=== PATIENT | male | born 1955 | race Two or more races ===

== ENCOUNTER 2021-07-19 12:19 | Inpatient (IN) | payer MEDICARE, OTHER ==
[~2021-07-19] VITALS: Ht 180.3 cm; Wt 109.4 kg
[2021-07-19 14:03] LABS: White Blood Cell 8.2 10^3/uL (4.4-10.8)
[2021-07-19 14:05] LABS: Basophils # (auto) 0 10 ^3/uL (0-0.2); Basophils % (auto) 0.2 % (0.0-2.0); Eosinophils # (auto) 0 10 ^3/uL (0-0.8); Eosinophils % (auto) 0.3 % (0.0-7.0); Hematocrit 29.2 % (41.0-53.0); Hemoglobin 10.6 g/dL (13.5-17.5); Lymphocytes % (auto) 12.8 % (10.0-50.0); Mean Corpuscular Hemoglobin 38.8 pg (28.0-32.0); Mean Corpuscular Hgb Conc. 36.1 g/dL (32.0-36.0); Mean Corpuscular Volume 107.3 fL (80.0-100.0); Monocytes # (auto) 0.8 10 ^3/uL (0-1.3); Monocytes % (auto) 9.7 % (0.0-12.0); Neutrophils # (auto) 6.3 10 ^3/uL (1.6-8.6); Nucleated Red Blood Cells % 0.2 %; Red Blood Cells 2.73 10^6/uL (4.5-5.90); Red Cell Distribution Width 12.9 % (11.8-14.3)
[2021-07-19 14:10] LABS: Albumin 1.8 g/dL (3.4-5.0); Calcium 7.7 mg/dL (8.5-10.1)
[2021-07-19 14:16] LABS: BUN/Creatinine Ratio 12.6; Bilirubin, Total 2.8 mg/dL (0.2-1.0); Total Protein 7.6 g/dL (6.4-8.2)
[2021-07-19 14:35] LABS: Potassium 2.8 mmol/L (3.5-5.1)
[2021-07-19 15:07] LABS: INR 1.46 (0.9-1.15); Partial Thromboplastin Time 33.9 sec (23.6-33.0)
[2021-07-19] MEDS ORDERED: POTASSIUM EFFERVESENT TAB 25 MEQ PO ONE (15:15)
[2021-07-19] MEDS ORDERED: HEPARIN SODIUM (PORCINE) 5000 UNITS/ML 1ML VIAL IV ONE (15:45)
[2021-07-19] MEDS ORDERED: NITROGLYCERIN 0.4 MG SL TAB SL PRN ×2 (19:00→19:15)
[2021-07-19] MEDS ORDERED: MORPHINE SULFATE INJECTION 2 MG/ML SYRG IV PRN ×3 (19:00→19:15)
[2021-07-19] MEDS ORDERED: HYDROcodone-ACET 5/325MG TAB PO PRN (19:15)
[2021-07-19] MEDS ORDERED: AZITHROMYCIN 500MG/ 250ML 250 ML IV ONE (19:15)
[2021-07-19] MEDS ORDERED: hydrALAZINE HCL 20 MG/ML VL IV PRN (19:15)
[2021-07-19] MEDS ORDERED: cefTRIAXone 1GM/50ML D5W 50 ML IV ONE (19:15)
[2021-07-19] MEDS ORDERED: ALUM & MAG HYDROX-SIMETH LIQ(MAALOX) 30 ML PO PRN (19:15)
[2021-07-19] MEDS ORDERED: PANTOPRAZOLE 40 MG/10 ML VIAL INJ IV ONE (19:15)
[2021-07-19] MEDS ORDERED: ONDANSETRON HCL 4 MG/2 ML VIAL IV PRN (19:15)
[2021-07-19] MEDS ORDERED: DOCUSATE SOD 100 MG CAP PO PRN (19:15)
[2021-07-19] MEDS ORDERED: ACETAMINOPHEN 500 MG TAB PO PRN (19:15)
[2021-07-19] MEDS: POTASSIUM CHL 10MEQ/50ML 50 ML IV SCH ×2 (19:43→20:43)
[2021-07-19] MEDS: ASCORBIC ACID 1,000 MG TAB PO SCH (19:51)
[2021-07-19] MEDS: ZINC SULFATE 220mg CAP or TAB PO SCH (20:21)
[2021-07-19] MEDS: CHOLECALCIFEROL (VITD3) 2,000 UNIT CAP/TAB PO SCH (20:21)
[2021-07-19] MEDS: APIXABAN 5 MG TAB PO SCH (20:23)
[2021-07-19] MEDS: DexAMETHasone SOD PHOS 10MG/1ML VIAL INJ IV SCH (20:52)
[2021-07-19 21:02] LABS: Albumin 1.6 g/dL (3.4-5.0); Calcium 7.5 mg/dL (8.5-10.1); Magnesium 2.5 mg/dL (1.6-2.6); Potassium 3.1 mmol/L (3.5-5.1); Uric Acid 9.9 mg/dL (3.5-7.2)
[2021-07-19 21:05] LABS: Lactic Acid w/Reflex 2.1 mmol/L (0.4-2.0)
[2021-07-19 21:11] LABS: Bilirubin, Total 2.6 mg/dL (0.2-1.0); CRP High Sensitivity 4.25 mg/dL (< 0.3); Total Protein 7.1 g/dL (6.4-8.2)
[2021-07-19 21:16] LABS: Thyroid Stimulating Hormone 3.3 uIU/mL (0.358-3.74)
[2021-07-19 21:20] LABS: % Iron Saturation 109.3 % (20-55); Iron 59 ug/dL (65-175); Total Iron Binding Capacity 54 ug/dL (250-450)
[2021-07-19 21:32] LABS: Basophils # (auto) 0 10 ^3/uL (0-0.2); Basophils % (auto) 0.4 % (0.0-2.0); Eosinophils # (auto) 0 10 ^3/uL (0-0.8); Eosinophils % (auto) 0.6 % (0.0-7.0); Hemoglobin 9.2 g/dL (13.5-17.5); Lymphocytes % (auto) 17.5 % (10.0-50.0); Mean Corpuscular Hgb Conc. 35.3 g/dL (32.0-36.0); Mean Corpuscular Volume 99.1 fL (80.0-100.0); Monocytes # (auto) 0.6 10 ^3/uL (0-1.3); Monocytes % (auto) 10.5 % (0.0-12.0); Neutrophils # (auto) 4.2 10 ^3/uL (1.6-8.6); Nucleated Red Blood Cells % 0.4 %; Red Blood Cells 2.62 10^6/uL (4.5-5.90); White Blood Cell 5.9 10^3/uL (4.4-10.8)
[2021-07-19 22:00] VITALS: BP 113/63
[2021-07-19] MEDS ORDERED: TEMAZEPAM 15 MG CAP PO PRN (22:00)
[2021-07-19 22:39] LABS: Cholesterol < 50 mg/dL (< 200); Triglycerides 69 mg/dL (< 150)
[2021-07-19 22:41] LABS: HDL Cholesterol 12 mg/dL (40-59); LDL Cholesterol 28 mg/dL (< 100)
[2021-07-20 05:00] VITALS: BP 102/48
[2021-07-20] MEDS: FUROSEMIDE 20 MG/2 ML VIAL IV SCH ×2 (07:14→18:44)
[2021-07-20 07:18] LABS: Basophils # (auto) 0 10 ^3/uL (0-0.2); Basophils % (auto) 0.2 % (0.0-2.0); Eosinophils # (auto) 0 10 ^3/uL (0-0.8); Hemoglobin 8.9 g/dL (13.5-17.5); Monocytes # (auto) 0.2 10 ^3/uL (0-1.3); White Blood Cell 4.5 10^3/uL (4.4-10.8)
[2021-07-20 07:22] LABS: Eosinophils % (auto) 0.1 % (0.0-7.0); Hematocrit 24.5 % (41.0-53.0); Lymphocytes # (auto) 0.5 10 ^3/uL (0.4-5.4); Lymphocytes % (auto) 11.8 % (10.0-50.0); Mean Corpuscular Hemoglobin 39.7 pg (28.0-32.0); Mean Corpuscular Hgb Conc. 36.4 g/dL (32.0-36.0); Monocytes % (auto) 4.2 % (0.0-12.0); Neutrophils # (auto) 3.8 10 ^3/uL (1.6-8.6); Neutrophils % (auto) 83.7 % (37.0-80.0); Nucleated Red Blood Cells % 0.1 %; Red Blood Cells 2.25 10^6/uL (4.5-5.90); Red Cell Distribution Width 12.8 % (11.8-14.3)
[2021-07-20 07:23] LABS: Potassium 3.2 mmol/L (3.5-5.1)
[2021-07-20 07:31] LABS: INR 1.56 (0.9-1.15); Partial Thromboplastin Time 38.4 sec (23.6-33.0)
[2021-07-20 07:37] LABS: Albumin 1.4 g/dL (3.4-5.0); BUN/Creatinine Ratio 15.6; Bilirubin, Total 1.7 mg/dL (0.2-1.0); Calcium 7.4 mg/dL (8.5-10.1); Phosphorus 1.7 mg/dL (2.5-4.90); Total Protein 6.6 g/dL (6.4-8.2)
[2021-07-20 09:00] VITALS: BP 110/53
[2021-07-20] MEDS: cefTRIAXone 1GM/50ML D5W 50 ML IV SCH (09:22)
[2021-07-20] MEDS: PANTOPRAZOLE 40 MG/10 ML VIAL INJ IV SCH (09:25)
[2021-07-20] MEDS: APIXABAN 5 MG TAB PO SCH ×2 (09:25→20:34)
[2021-07-20] MEDS: CHOLECALCIFEROL (VITD3) 2,000 UNIT CAP/TAB PO SCH (09:25)
[2021-07-20] MEDS: ASPirin 81 mg TAB PO SCH (09:26)
[2021-07-20] MEDS: ASCORBIC ACID 1,000 MG TAB PO SCH (09:26)
[2021-07-20] MEDS: DexAMETHasone SOD PHOS 10MG/1ML VIAL INJ IV SCH (09:26)
[2021-07-20] MEDS: ZINC SULFATE 220mg CAP or TAB PO SCH (09:26)
[2021-07-20] MEDS: ALLOPURINOL 100 MG TAB PO SCH (09:47)
[2021-07-20] MEDS: POTASSIUM CHL 20 Meq TABLET PO SCH ×2 (10:00→22:02)
[2021-07-20] MEDS: BUDESONIDE (INHALATION) 180 MCG IH IN SCH ×2 (10:00→19:54)
[2021-07-20] MEDS: POTASSIUM CHL 10MEQ/50ML 50 ML IV SCH ×6 (10:14→19:10)
[2021-07-20] MEDS: AZITHROMYCIN 500MG/ 250ML 250 ML IV SCH (10:57)
[2021-07-20 13:00] VITALS: BP 93/55
[2021-07-20 17:00] VITALS: BP 99/58
[2021-07-20] MEDS: ALBUTEROL SULF HFA 90MCG INH 200DOSE IN PRN (19:54)
[2021-07-20 22:00] VITALS: BP 98/54
[2021-07-20] MEDS: ATORVASTATIN 20 MG TAB PO SCH ×2 (22:02)
[2021-07-21 05:00] VITALS: BP_SYST 106; BP_SYST 94; BP_DIAS 50; BP_DIAS 55
[2021-07-21] MEDS: FUROSEMIDE 20 MG/2 ML VIAL IV SCH ×2 (06:00→17:54)
[2021-07-21] MEDS: BUDESONIDE (INHALATION) 180 MCG IH IN SCH ×2 (07:20→21:02)
[2021-07-21] MEDS: ALBUTEROL SULF HFA 90MCG INH 200DOSE IN PRN ×2 (07:20→21:02)
[2021-07-21 08:12] LABS: Potassium 3.2 mmol/L (3.5-5.1)
[2021-07-21 08:29] LABS: Albumin 1.8 g/dL (3.4-5.0); BUN/Creatinine Ratio 18.2; Bilirubin, Total 1.4 mg/dL (0.2-1.0); Calcium 7.6 mg/dL (8.5-10.1); Phosphorus 1.4 mg/dL (2.5-4.90); Total Protein 7.3 g/dL (6.4-8.2)
[2021-07-21 08:30] LABS: % Iron Saturation 65.3 % (20-55)
[2021-07-21 08:37] LABS: INR 1.53 (0.9-1.15)
[2021-07-21 08:58] LABS: Basophils # (auto) 0.1 10 ^3/uL (0-0.2); Eosinophils # (auto) 0 10 ^3/uL (0-0.8); Hematocrit 27.5 % (41.0-53.0); Hemoglobin 9.5 g/dL (13.5-17.5); Lymphocytes # (auto) 0.5 10 ^3/uL (0.4-5.4); Lymphocytes % (auto) 4.8 % (10.0-50.0); Mean Corpuscular Hemoglobin 34.9 pg (28.0-32.0); Mean Corpuscular Hgb Conc. 34.7 g/dL (32.0-36.0); Mean Corpuscular Volume 100.5 fL (80.0-100.0); Monocytes # (auto) 0.3 10 ^3/uL (0-1.3); Monocytes % (auto) 3.4 % (0.0-12.0); Neutrophils # (auto) 8.7 10 ^3/uL (1.6-8.6); Neutrophils % (auto) 90.8 % (37.0-80.0); Nucleated Red Blood Cells % 0.1 %; Red Blood Cells 2.73 10^6/uL (4.5-5.90); Red Cell Distribution Width 12.9 % (11.8-14.3); White Blood Cell 9.5 10^3/uL (4.4-10.8)
[2021-07-21 09:00] VITALS: BP 103/60
[2021-07-21] MEDS: APIXABAN 5 MG TAB PO SCH ×2 (09:25→20:20)
[2021-07-21] MEDS: cefTRIAXone 1GM/50ML D5W 50 ML IV SCH (09:26)
[2021-07-21] MEDS: CHOLECALCIFEROL (VITD3) 2,000 UNIT CAP/TAB PO SCH (10:29)
[2021-07-21] MEDS: ZINC SULFATE 220mg CAP or TAB PO SCH (10:29)
[2021-07-21] MEDS: ASCORBIC ACID 1,000 MG TAB PO SCH (10:29)
[2021-07-21] MEDS: ALLOPURINOL 100 MG TAB PO SCH (10:29)
[2021-07-21] MEDS: ASPirin 81 mg TAB PO SCH (10:29)
[2021-07-21] MEDS: PANTOPRAZOLE 40 MG/10 ML VIAL INJ IV SCH (10:30)
[2021-07-21] MEDS: DexAMETHasone SOD PHOS 10MG/1ML VIAL INJ IV SCH (10:30)
[2021-07-21] MEDS: AZITHROMYCIN 500MG/ 250ML 250 ML IV SCH (10:31)
[2021-07-21] MEDS ORDERED: POTASSIUM EFFERVESENT TAB 25 MEQ PO ONE (15:30)
[2021-07-21 16:15] VITALS: BP 129/61
[2021-07-21 22:00] VITALS: BP 103/47
[2021-07-21] MEDS: ATORVASTATIN 20 MG TAB PO SCH (22:29)
[2021-07-22] MEDS ORDERED: SODIUM PHOSPHATES 40 MEQ in D5W 5% 250 ML IV ONE (01:00)
[2021-07-22 05:00] VITALS: BP 102/51
[2021-07-22] MEDS: DexAMETHasone SOD PHOS 10MG/1ML VIAL INJ IV SCH (08:59)
[2021-07-22] MEDS: PANTOPRAZOLE 40 MG/10 ML VIAL INJ IV SCH (08:59)
[2021-07-22 09:00] VITALS: BP 124/47
[2021-07-22] MEDS: FOLIC ACID 1 MG TAB PO SCH (09:00)
[2021-07-22] MEDS: ZINC SULFATE 220mg CAP or TAB PO SCH (09:00)
[2021-07-22] MEDS: APIXABAN 5 MG TAB PO SCH ×2 (09:00→20:49)
[2021-07-22] MEDS: ALLOPURINOL 100 MG TAB PO SCH (09:01)
[2021-07-22] MEDS: CHOLECALCIFEROL (VITD3) 2,000 UNIT CAP/TAB PO SCH (09:02)
[2021-07-22] MEDS: MULTIPLE VITAMINS W/ MINERALS TAB PO SCH (09:02)
[2021-07-22] MEDS: THIAMINE HCL 100 MG TAB PO SCH (09:02)
[2021-07-22] MEDS: ASCORBIC ACID 1,000 MG TAB PO SCH (09:02)
[2021-07-22] MEDS: cefTRIAXone 1GM/50ML D5W 50 ML IV SCH (09:04)
[2021-07-22] MEDS: AZITHROMYCIN 500MG/ 250ML 250 ML IV SCH (09:04)
[2021-07-22 12:26] LABS: Hepatitis A Total Antibody Negative (Negative); Hepatitis B Surface Antibody Negative (Negative); Hepatitis C Antibody Negative (Negative)
[2021-07-22 13:00] VITALS: BP 122/64
[2021-07-22] MEDS ORDERED: POTASSIUM CHL 20 Meq TABLET PO ONE (15:30)
[2021-07-22 17:00] VITALS: BP 118/60
[2021-07-22] MEDS: ALBUTEROL SULF HFA 90MCG INH 200DOSE IN PRN (20:01)
[2021-07-22] MEDS: BUDESONIDE (INHALATION) 180 MCG IH IN SCH (20:01)
[2021-07-22 22:00] VITALS: BP 111/57
[2021-07-23] MEDS: BUDESONIDE (INHALATION) 180 MCG IH IN SCH ×2 (06:20→21:41)
[2021-07-23] MEDS: ALBUTEROL SULF HFA 90MCG INH 200DOSE IN PRN ×2 (07:52→21:41)
[2021-07-23 08:00] VITALS: BP 107/48
[2021-07-23] MEDS: cefTRIAXone 1GM/50ML D5W 50 ML IV SCH (08:28)
[2021-07-23] MEDS: APIXABAN 5 MG TAB PO SCH ×2 (08:28→21:16)
[2021-07-23] MEDS: DexAMETHasone SOD PHOS 10MG/1ML VIAL INJ IV SCH (09:08)
[2021-07-23] MEDS: PANTOPRAZOLE 40 MG/10 ML VIAL INJ IV SCH (09:09)
[2021-07-23] MEDS: FOLIC ACID 1 MG TAB PO SCH (09:09)
[2021-07-23] MEDS: THIAMINE HCL 100 MG TAB PO SCH (09:10)
[2021-07-23] MEDS: AZITHROMYCIN 500MG/ 250ML 250 ML IV SCH (09:10)
[2021-07-23] MEDS: ASCORBIC ACID 1,000 MG TAB PO SCH (09:11)
[2021-07-23] MEDS: MULTIPLE VITAMINS W/ MINERALS TAB PO SCH (09:11)
[2021-07-23] MEDS: ZINC SULFATE 220mg CAP or TAB PO SCH (09:12)
[2021-07-23] MEDS: CHOLECALCIFEROL (VITD3) 2,000 UNIT CAP/TAB PO SCH (09:12)
[2021-07-23] MEDS: ALLOPURINOL 100 MG TAB PO SCH (09:13)
[2021-07-23 11:53] LABS: Hematocrit 26.4 % (41.0-53.0); Hemoglobin 9.7 g/dL (13.5-17.5)
[2021-07-23 11:57] LABS: Albumin 1.7 g/dL (3.4-5.0); Magnesium 1.8 mg/dL (1.6-2.6); Potassium 3.4 mmol/L (3.5-5.1)
[2021-07-23 12:00] VITALS: BP 101/47
[2021-07-23 12:02] LABS: Bilirubin, Direct 0.5 mg/dL (0-0.2); Bilirubin, Total 0.7 mg/dL (0.2-1.0); Total Protein 6.4 g/dL (6.4-8.2)
[2021-07-23 12:11] LABS: INR 1.41 (0.9-1.15)
[2021-07-23] MEDS ORDERED: DEX4T PO ×2 (14:28→14:49)
[2021-07-23] MEDS ORDERED: CHOL20007 PO (14:28)
[2021-07-23] MEDS ORDERED: ASCO10003 PO (14:28)
[2021-07-23] MEDS ORDERED: ZINC220T6 PO (14:28)
[2021-07-23] MEDS ORDERED: MAGNESIUM OXIDE 400 MG TAB PO ONE (14:30)
[2021-07-23] MEDS ORDERED: DOXY-286 PO (14:49)
[2021-07-23] MEDS ORDERED: ALBUAER3 IN (14:49)
[2021-07-23] MEDS ORDERED: FOLI1TAB6 PO (14:49)
[2021-07-23] MEDS ORDERED: PANT40TA2 PO (14:49)
[2021-07-23] MEDS ORDERED: MULT-351 PO (14:49)
[2021-07-23] MEDS ORDERED: THIA100T5 PO (14:49)
[2021-07-23 15:24] VITALS: BP 110/60
[2021-07-23 16:00] VITALS: BP 108/57
[2021-07-23 22:00] VITALS: BP 124/52
[2021-07-24 05:00] VITALS: BP 107/68
[2021-07-24] MEDS: APIXABAN 5 MG TAB PO SCH (07:35)
[2021-07-24] MEDS: BUDESONIDE (INHALATION) 180 MCG IH IN SCH (07:36)
[2021-07-24] MEDS: cefTRIAXone 1GM/50ML D5W 50 ML IV SCH (07:36)
[2021-07-24] MEDS: ALBUTEROL SULF HFA 90MCG INH 200DOSE IN PRN (07:36)
[2021-07-24 08:49] VITALS: BP 110/60
[2021-07-24] MEDS: AZITHROMYCIN 500MG/ 250ML 250 ML IV SCH (10:04)
[2021-07-24] MEDS: PANTOPRAZOLE 40 MG/10 ML VIAL INJ IV SCH (10:07)
[2021-07-24] MEDS: DexAMETHasone SOD PHOS 10MG/1ML VIAL INJ IV SCH (10:10)
[2021-07-24] MEDS: FOLIC ACID 1 MG TAB PO SCH (10:13)
[2021-07-24] MEDS: THIAMINE HCL 100 MG TAB PO SCH (10:14)
[2021-07-24] MEDS: ZINC SULFATE 220mg CAP or TAB PO SCH (10:14)
[2021-07-24] MEDS: ASCORBIC ACID 1,000 MG TAB PO SCH (10:15)
[2021-07-24] MEDS: CHOLECALCIFEROL (VITD3) 2,000 UNIT CAP/TAB PO SCH (10:15)
[2021-07-24] MEDS: MULTIPLE VITAMINS W/ MINERALS TAB PO SCH (10:15)
[2021-07-24] MEDS: ALLOPURINOL 100 MG TAB PO SCH (10:16)
[2021-07-24 13:06] VITALS: BP 100/48
[2021-07-24] MEDS ORDERED: POTASSIUM CHL 20 Meq TABLET PO ONE (14:15)
[2021-07-26] MEDS ORDERED: APIXABAN 5 MG TAB PO SCH (20:00)
== END 2021-07-24 18:41 | disposition home health service (06) | DRG 871 ==
LOC: EDBD 12:19 → ER 12:32 → TELE 19:10 → TELE-WESTW 21:51
PROVIDERS: ADMIT Hospitalist; ATTEND Internal Medicine
DX: A41.89 Other specified sepsis (principal); U07.1 COVID-19; J12.82 Pneumonia due to coronavirus disease 2019; I82.412 Acute embolism and thrombosis of left femoral vein; D68.8 Other specified coagulation defects; J44.0 Chronic obstructive pulmonary disease with (acute) lower respiratory infection; E87.6 Hypokalemia; I89.0 Lymphedema, not elsewhere classified; L30.9 Dermatitis, unspecified; D89.839 Cytokine release syndrome, grade unspecified; K70.9 Alcoholic liver disease, unspecified; M1A.9XX0 Chronic gout, unspecified, without tophus (tophi); D69.6 Thrombocytopenia, unspecified; I10 Essential (primary) hypertension; E78.5 Hyperlipidemia, unspecified; F17.200 Nicotine dependence, unspecified, uncomplicated; E66.01 Morbid (severe) obesity due to excess calories; D63.8 Anemia in other chronic diseases classified elsewhere; Z68.33 Body mass index [BMI] 33.0-33.9, adult; Z59.00 Homelessness unspecified
CPT/HCPCS: 36415; 71045; 80053; 80061; 80076; 82270; 82306; 82728; 83036; 83540; 83550; 83605; 83615; 83735; 83880; 84100; 84132; 84443; 84484; 84550; 85014; 85018; 85025; 85379; 85610; 85730; 86141; 86704; 86706; 86708; 86803; 87040; 87340; 87426; 93005; 93306; 93971; 94640; 96374; 97110; 97163; 97530; C9113; G0378; J0696; J1100; J7060